=== PATIENT | male | born 1980 | race Hispanic/Latino ===

== ENCOUNTER → 2018-06-04 | Outpatient (CLI) | payer OTHER ==
--- NOTE | 2018-06-04 13:47 | REP ---
MAXILLOFACIAL CT WITHOUT CONTRAST: HISTORY: Chronic rhinitis. Mucosal thickening is present in the sinuses. There is almost complete opacification of the left frontal sinus. Moderate mucosal thickening is present in the ethmoid sinuses. Mild mucosal thickening is present in the maxillary sinuses. Minimal mucosal thickening is present in the sphenoid sinuses. Mucosal thickening involves the ostiomeatal units. The middle and inferior nasal turbinates are partially paradoxical. There is minimal deviation of the nasal septum to the right superiorly into the left inferiorly. A spur is present arising from the left side of the nasal septum. The spur abuts the left inferior nasal turbinate. The cribriform plate, medial banda of the orbits and optic canals are intact. The carotid canals form a segment of the posterolateral banda of the sphenoid sinus. The sphenoid sinus septum inserts into the right internal carotid canal wall. IMPRESSION: Sinus mucosal thickening as described above. Electronically Signed by Esteban Isaac MD 06/04/2018 01:51 P
== END ==
LOC: M RAD 12:51
PROVIDERS: ATTEND Otolaryngology
DX: J31.0 Chronic rhinitis (principal); R43.0 Anosmia; J31.2 Chronic pharyngitis; J32.2 Chronic ethmoidal sinusitis

== ENCOUNTER → 2019-01-22 | Outpatient (CLI) | payer OTHER ==
[~2019-01-22] MED LIST: CETI10CA2 PO
--- NOTE | 2019-01-22 16:06 | ECGEPIP ---
[facility] Test Date: 2019-01-22 Pat Name: LESA COLVIN Department: Room: - Gender: Male Staff Field Engineer: ALEXANDER : 1980 Requested By: COLE Herbert Order Number: [id number] Reading MD: Govind Zhao Measurements Intervals [place] Rate: 61 P: 44 VA: 158 QRS: 54 QRSD: 107 T: 52 QT: 403 QTc: 408 Interpretive Statements SINUS RHYTHM WNL No prior ECG available for comparison. Electronically Signed on 01-22-2019 16:05:40 EDT by Govind Zhao
== END ==
LOC: M EKG 09:07
PROVIDERS: ATTEND Anesthesiology
DX: G47.30 Sleep apnea, unspecified (principal)

== ENCOUNTER 2019-01-23 09:10 | Day surgery (SDC) | payer OTHER ==
[~2019-01-23] VITALS: Ht 172.7 cm; Wt 81.6 kg
[2019-01-23] MEDS ORDERED: LR 1,000 ML IV ONE (10:00)
[2019-01-23] MEDS ORDERED: PROPOFOL 200 MG/20 ML VIAL As Ordered ONE (11:31)
[2019-01-23] MEDS ORDERED: ONDANSETRON 4MG/2ML VIAL (J2405) As Ordered ONE (11:32)
[2019-01-23] MEDS ORDERED: LIDOCAINE 2% INJ 100 MG/5 ML SDV (FOR ANES.) As Ordered ONE (11:32)
[2019-01-23] MEDS ORDERED: ROCURONIUM BROMIDE 50 MG/5 ML VIAL As Ordered ONE (11:32)
[2019-01-23] MEDS ORDERED: dexameTHASONE 4 MG/ML 1ML VIAL (J1100) As Ordered ONE (11:32)
[2019-01-23] MEDS ORDERED: MIDAZOLAM INJ 2 MG/2 ML VIAL (J2250) As Ordered ONE (11:57)
[2019-01-23] MEDS ORDERED: fentaNYL 100 MCG/2 ML INJECTION (J3010) As Ordered ONE ×2 (11:57→13:23)
[2019-01-23] MEDS ORDERED: LIDOCAINE W/EPINEPHRINE 1% 20ML VIAL As Ordered ONE (12:00)
[2019-01-23] MEDS ORDERED: OXYMETAZOLINE NASAL SPRAY (AFRIN) As Ordered ONE (12:00)
[2019-01-23] MEDS ORDERED: METHYLENE BLUE 0.5% (5MG/ML) 10 ML AMP (PROVAYBLUE)(Q9968 PER 1MG) As Ordered ONE (12:01)
[2019-01-23] MEDS ORDERED: SUGAMMADEX SODIUM 500 MG/5 ML VIAL (BRIDION) As Ordered ONE (12:35)
[2019-01-23] MEDS ORDERED: SODIUM CHLORIDE 0.9% NASAL GEL 15GM (AYR) As Ordered ONE (14:02)
[2019-01-23] MEDS: fentaNYL 100 MCG/2 ML INJECTION (J3010) IV PRN ×4 (14:58→15:46)
[2019-01-23] MEDS: ONDANSETRON 4MG/2ML VIAL (J2405) IV PRN (14:58)
[2019-01-23] MEDS ORDERED: LR 1,000 ML IV SCH (15:00)
[2019-01-23] MEDS: oxyCODONE 5MG TAB PO PRN ×2 (15:07→15:46)
[2019-01-23] MEDS ORDERED: NORCO, ANEXSIA 5/325MG TABLET (HYDROcodone/ACETAMINOPHEN) PO PRN (16:00)
[2019-01-23 16:30] VITALS: BP 131/85
--- NOTE | 2019-01-23 23:55 | RO ---
DATE OF PROCEDURE: 01/23/2019 PREOPERATIVE DIAGNOSIS: Pansinusitis, septal deviation, nasal congestion, turbinate hypertrophy and hyposmia. POSTOPERATIVE DIAGNOSIS: Pansinusitis, septal deviation, nasal congestion, turbinate hypertrophy and hyposmia. OPERATION PERFORMED: 1. Bilateral complete ethmoidectomies. 2. Endoscopic bilateral sphenoidotomies 3. Bilateral endoscopic maxillary sinusotomies. 4. Bilateral frontal balloon sinuplasties. 5. Septoplasty. 6. Bilateral inferior turbinoplaties. SURGEON: Dennis Ware Jr, MD ANALYSIS OR RESEARCH SAFETY INSPECTOR: ANESTHESIA: General anesthetic via endotracheal tube by Dr. Watts and BOBBY. INDICATIONS FOR PROCEDURE: Nasal polyps, hyposmia as well and chronic sinus and nasal congestion. PROCEDURE IN DETAIL: With the patient in the supine position after being induced, intubated, prepped and draped in the usual way, the patient had the left mucoperichondrium, mucoperiosteum injected with lidocaine 1%, 1:100,000 epinephrine, as well as the right side; a total of 7 mL was injected with a 27-gauge needle. The patient had been prepped and draped in the usual fashion. A left hemitransfixion incision ensued. Mucoperichondrium, mucoperiosteum was elevated with a [place] as well as the Wall elevator. Bony cartilaginous junctions were inferiorly and posteriorly. Once this was done, there was a septal spur posteriorly that was removed with the Kylie, after superiorly the Satya-Darwin was utilized to open this up. Meadow-Middletons were also used for the inferior portion of the deviation of the septum and the septal spur. Once this was done and the septum was straight, I thought surgery could continue. Attention was drawn to the endoscopic portion where the base of the middle turbinates were injected with the 27-gauge needle, approximately a quarter mL of 1%, 1:100,000 epinephrine . Once this was done, the pledgets with Afrin were placed in the middle meatus. The middle turbinates were infractured, the inferior turbinates were outfractured. The balloon was used on the left to navigate into the frontal sinus. It took some effort, but we were able to navigate the Brandi up into the clear frontal sinus where the Brandi device was translucent and very clear and very mobile. We did insert the catheter. There was a little bit of resistance. We went to the level of the resistance, although we clearly were in the left frontal sinus with free mobility of the spotlight Brandi guidwire . This was dilated up to 12 cm and then slowly advanced a little bit more, and then another 12 cm after this was done. The area was irrigated with saline, approximately 60 mL, and the patient tolerated this well. Attention then was drawn to the right side where again this was cannulated with the frontal Acclarent balloon device, and again, this was identified at the clear focal mobile point with the Brandi device, then dilated to 12 cm. This one was a little bit easier to cannulate with the Acclarent balloon device. Once this was done, the Brandi device was then reflected and then irrigated again with another 60 mL. The patient tolerated this well. Then, attention was drawn to the maxillary region. There was a seeker that was used to identify this. There were polyps in both ethmoid areas. After utilizing the maxillary seeker on the left side, the pediatric backbiter was used to open up the uncinate process, and then the uncinate process was removed with 45- degree Thru-Cut as well as with the microdebrider. Complete ethmoidectomy was done with the StraightShot Xomed microdebrider. This was taken down to 7-1/2 to 7 cm. Initially, the sphenoidotomy site on the left side was ballooned, but we also opened it up a little bit more on the other side. Once this was done, packing was placed and Afrin cotton-soaked pledget was placed in the middle meatus. I should also mention that a straight Thru-Cut was placed in the left maxillary fontanelle and then also enhanced posteriorly as well utilizing the biter carefully to open up the maxillary sinus on the left side. This was photo documented. Attention was drawn on the right side where in a similar fashion the maxillary seeker was used to identify the maxillary sinus opening. The pediatric backbiter was utilized to cannulate the maxillary sinus, and then remove part of the uncinate process, followed by 45-degree Thru-Cut, followed by microdebrider with a complete ethmoidectomy, as well as opening into the sphenoid area. This was at 7-1/2 cm and approximately 30-degree angle. Once this was done, the patient then underwent enhancement of the right maxillary sinus with the straight Thru-Cut posteriorly and the pediatric backbiter aimed slightly anteriorly and superiorly. This was photo documented with the wide opening as well. There were also some small polyps in the sphenoidotomy site medial to the superior turbinate. This was dissected with the microdebrider as well, although this was a smaller sinus opening. Once this was done, the Reflex 45-degree Coblator device with settings of 4 coblate, 2 coag were utilized for the inferior turbinates. Another 1-1/2 mL was injected into each inferior turbinate to balloon them out and then the device was coated with Reliance saline gel, and two passes were done on the left inferior turbinate, as well as on the right inferior turbinate. After this was done, attention then was drawn to look into the ethmoid area. Packing was placed. Complete ethmoidectomy was done on both sides. Sphenoidotomy was performed as well. Maxillary sinusotomies were done and balloon sinuplasties, as mentioned, had been done previously as well. Sinuses were irrigated with saline. At this point, the septum was closed with two septocolumellar stitches of #3-0 chromic, and then also two Propel stents full length were placed in each ethmoidectomy site and hydrated. At this point, we elected not to put a splint in. The patient tolerated the procedure well. Estimated blood loss was about 75 mL. There were no complications. He was taken to the recovery room in satisfactory condition. SEBASTIAN
== END 2019-01-23 16:40 | disposition home or self-care (01) ==
LOC: M SDC 09:10
PROVIDERS: ATTEND Otolaryngology
DX: J01.40 Acute pansinusitis, unspecified (principal); J34.2 Deviated nasal septum; J34.3 Hypertrophy of nasal turbinates; R09.81 Nasal congestion; G47.30 Sleep apnea, unspecified; F41.9 Anxiety disorder, unspecified; Z79.899 Other long term (current) drug therapy
CPT/HCPCS: 30140; 30520; 31255; 31267; 31296; 88305; C2625; J1100; J2250; J2405; J3010; Q9968